=== PATIENT | male | born 1975 | race Caucasian/White ===

== ENCOUNTER 2018-11-06 11:04 | Emergency (ER) | payer OTHER ==
[2018-11-06] MEDS ORDERED: RIVAROXABAN 10 MG TABLET PO ONE (12:47)
[2018-11-06] MEDS ORDERED: IPRATROPIUM/ALBUTEROL 0.5-2.5 MG/3 ML AMPUL NEB ONE (12:47)
[2018-11-06] MEDS ORDERED: PREDNISONE 20 MG TABLET PO ONE (12:47)
[2018-11-06] MEDS ORDERED: ALBUTEROL SULFATE HFA (90 MCG/PUFF) 8 GM MDI (1 MDI/ER DISP) IH ONE (13:54)
--- NOTE | 2018-11-06 14:02 | ER Document Report ---
ED General - General Chief Complaint: Cough Stated Complaint: SORE THROAT/CHEST TIGHTNESS Time Seen by Provider: 11/06/18 12:24 Primary Care Provider: GRAEME BERNARD MD [ACTIVE STAFF] - Follow up as needed TRAVEL OUTSIDE OF THE [place] IN LAST 30 DAYS: No - HPI Patient complains to provider of: Cough sore throat Notes: Patient coming in for evaluation of cough and sore throat. Patient states has a history of PE in the past however recently was working on cleaning up some debris when he moved a box that was filled full of possible fungus mold or dust. Patient states since that time for sore throat and has had difficulty breathing and coughing. Patient states does have history of asthma does have a nebulizer however is currently out of any kind of albuterol. Patient denies any recent travel denies any swelling in his legs. Patient states he was on Xarelto however he ran out of his Xarelto in the last week or so. Patient states he has not followed up with her primary care physician since moving to the area here and does not have a data storage specialist states he does have a history of family members having blood clots in states that when he had his 2 major blood clots in the past the thought process was more likely a genetic issue. Patient states he does not feel like he has another DVT or PE states that most of his symptoms are more likely asthma related - Related Data Allergies/Adverse Reactions: No Known Allergies Allergy (Verified 11/06/18 11:07) Past Medical History - Social History Smoking Status: Former Smoker Frequency of alcohol use: Social Drug Abuse: None Family History: Reviewed & Not Pertinent Patient has suicidal ideation: No Patient has homicidal ideation: No Renal/ Medical History: Denies: Hx Peritoneal Dialysis Review of Systems - Review of Systems Constitutional: No symptoms reported EENT: No symptoms reported Cardiovascular: No symptoms reported Respiratory: Short of breath Gastrointestinal: No symptoms reported Genitourinary: No symptoms reported Male Genitourinary: No symptoms reported Musculoskeletal: No symptoms reported Skin: No symptoms reported Hematologic/Lymphatic: No symptoms reported Neurological/Psychological: No symptoms reported -: Yes All other systems reviewed and negative Physical Exam - Vital signs Vitals: Temp Pulse Resp BP Pulse Ox 99.0 F 56 L 20 137/88 H 98 11/06/18 11:19 11/06/18 11:19 11/06/18 11:19 11/06/18 11:19 11/06/18 11:19 Interpretation: Normal - General General appearance: Appears well, Alert - HEENT Head: Normocephalic, Atraumatic Eyes: Normal Pupils: PERRL - Respiratory Respiratory status: No respiratory distress Chest status: Nontender Breath sounds: Wheezing Chest palpation: Normal - Cardiovascular Rhythm: Regular Heart sounds: Normal auscultation Murmur: No - Abdominal Inspection: Normal Distension: No distension Bowel sounds: Normal Tenderness: Nontender Organomegaly: No organomegaly - Back Back: Normal, Nontender - Extremities General upper extremity: Normal inspection, Nontender, Normal color, Normal ROM, Normal temperature General lower extremity: Normal inspection, Nontender, Normal color, Normal ROM, Normal temperature, Normal weight bearing. No: Matty's sign - Neurological Neuro grossly intact: Yes Cognition: Normal Orientation: AAOx4 Delmy Coma Scale Eye Opening: Spontaneous [place] Coma Scale Verbal: Oriented [place] Coma Scale Motor: Obeys Commands Delmy Coma Scale Total: 15 Speech: Normal Motor strength normal: LUE, RUE, LLE, RLE Sensory: Normal - Psychological Associated symptoms: Normal affect, Normal mood - Skin Skin Temperature: Warm Skin Moisture: Dry Skin Color: Normal Course - Re-evaluation Re-evalutation: 11/06/18 18:35 Prescription for the patient Xarelto 20 mg daily was given to the patient. Patient was given a dose of his Xarelto here due to his history of extensive PE DVTs. Patient was also given a breathing treatment and prednisone. Patient will continue with this at home. Otherwise patient was discharged on follow-up primary care physician. - Vital Signs Vital signs: Temp Pulse Resp BP Pulse Ox 97.8 F 58 L 20 121/81 97 11/06/18 14:23 11/06/18 14:23 11/06/18 11:19 11/06/18 14:23 11/06/18 14:23 Discharge - Discharge Clinical Impression: Dyspnea Qualifiers: Dyspnea type: unspecified Qualified Code(s): R06.00 - Dyspnea, unspecified Condition: Good Disposition: HOME, SELF-CARE Instructions: Asthma ([facility]), Family Physicians / Practices Additional Instructions: Please take medications as prescribed use the inhaler and advised treatments 1 treatment every 2-4 hours as needed for shortness of breath please make sure to follow-up with your primary care doctors listed also listed our data storage specialist please continue with your Xarelto. Prescriptions: Albuterol Sulfate [Proventil 0.5% Neb 2.5 mg/0.5 ml Vial.neb] 2.5 mg NEB Q4 #30 vial.neb Prednisone [Deltasone] 60 mg PO DAILY #24 tablet Rivaroxaban [Xarelto] 20 mg PO DAILY #30 tablet Forms: Return to Work Referrals: GRAEME BERNARD MD [ACTIVE STAFF] - Follow up as needed
[2018-11-06 14:24] VITALS: BP 121/81
== END 2018-11-06 14:28 | disposition home or self-care (01) ==
LOC: ER 11:04
DX: I26.99 Other pulmonary embolism without acute cor pulmonale (principal); I82.409 Acute embolism and thrombosis of unspecified deep veins of unspecified lower extremity; T45.516A Underdosing of anticoagulants, initial encounter; Z91.128 Patient's intentional underdosing of medication regimen for other reason; Z91.14 Patient's other noncompliance with medication regimen; R06.02 Shortness of breath; R05 Cough; J02.9 Acute pharyngitis, unspecified; Z77.120 Contact with and (suspected) exposure to mold (toxic); Z87.891 Personal history of nicotine dependence
CPT/HCPCS: 94640; 99284; 87070; 87880; J7512; J3490; J7620

== ENCOUNTER 2019-01-01 20:39 | Emergency (ER) | payer SELFPAY ==
[2019-01-01 21:40] LABS: ABSOLUTE EOSINOPHILS # (AUTO) 0.5 10^3/uL (0.0-0.6); ABSOLUTE LYMPHOCYTES (AUTO) 1.3 10^3/uL (0.5-4.7); ABSOLUTE MONOCYTES (AUTO) 0.9 10^3/uL (0.1-1.4); BASOPHILS % (AUTO) 0.2 % (0-2); EOSINOPHILS % (AUTO) 6.8 % (0-6); HEMATOCRIT 47.7 % (37.9-51.0); HEMOGLOBIN 16.5 g/dL (13.5-17.0); MEAN CORPUSCULAR HEMOGLOBIN 31.5 pg (27.0-33.4); MEAN CORPUSCULAR HGB CONC 34.6 g/dL (32.0-36.0); MEAN CORPUSCULAR VOLUME 91 fl (80-97); MONOCYTES % (AUTO) 13.3 % (3-13); PLATELET COUNT 260 10^3/uL (150-450); RED BLOOD COUNT 5.25 10^6/uL (4.35-5.55); RED CELL DISTRIBUTION WIDTH 13.9 % (11.5-14.0); SEGMENTED NEUTROPHILS % (AUTO) 60.7 % (42-78); TOTAL CELLS COUNTED % (AUTO) 100 %; WHITE BLOOD COUNT 6.7 10^3/uL (4.0-10.5)
--- NOTE | 2019-01-01 21:49 | RADIOLOGY REPORT (SQ) ---
EXAM DESCRIPTION: XR CHEST 1 VIEW COMPLETED DATE/TME: 01/01/2019 20:46 CLINICAL HISTORY: 43 years, Male, difficulty breathing COMPARISON: None. NUMBER OF VIEWS: 1 TECHNIQUE: Portable chest LIMITATIONS: None. FINDINGS: Heart size normal. Lungs clear. No pneumothorax IMPRESSION: Negative chest copyright 2011 [employer]- All Rights Reserved
[2019-01-01 21:56] LABS: ALANINE AMINOTRANSFERASE 29 U/L (21-72); ALBUMIN 4.2 g/dL (3.5-5.0); ALKALINE PHOSPHATASE 59 U/L (38-126); ANION GAP 6 (5-19); ASPARTATE AMINO TRANSFERASE 19 U/L (17-59); BILIRUBIN,DIRECT 0.3 mg/dL (0.0-0.4); BILIRUBIN,TOTAL 0.5 mg/dL (0.2-1.3); BLOOD UREA NITROGEN 19 mg/dL (7-20); CALCIUM 9.7 mg/dL (8.4-10.2); CARBON DIOXIDE 28 mmol/L (22-30); CHLORIDE 104 mmol/L (98-107); CREATINE KINASE 51 U/L (55-170); GLUCOSE 93 mg/dL (75-110); POTASSIUM 4.6 mmol/L (3.6-5.0); SODIUM 137.6 mmol/L (137-145)
[2019-01-01 22:08] LABS: CREATINE KINASE MB 0.72 ng/mL (<4.55); NT PRO BNP 59 pg/mL (<125)
--- NOTE | 2019-01-01 22:08 | ER Document Report ---
ED General - General Chief Complaint: Shortness Of Breath Stated Complaint: SHORTNESS OF BREATH Time Seen by Provider: 01/01/19 22:08 Mode of Arrival: Ambulatory Information source: Patient Notes: HISTORY OF PRESENT ILLNESS: Patient is a 43-year-old male with a past medical history of asthma and prior pulmonary embolism from a DVT who presents with difficulty breathing for the past 4-5 days and improved with steroids and albuterol. Location: Chest Onset: 5 days ago Alleviation: None Provocation: Coughing Quality: Tightness, sharp Radiation: None Severity: Moderate Timing: Constant History of CAD: None Associated symptoms: No fevers or chills, positive for nonproductive cough chest tightness, no swelling of the extremities, no labored breathing REVIEW OF SYSTEMS: CONSTITUTIONAL : Denies fever or chills, no sweats. Denies recent illness. EENT: Denies eye, ear, throat, or mouth pain or symptoms. Denies nasal or sinus congestion. CARDIOVASCULAR: Positive for chest tightness and sharp pain. Denies swelling of the legs. RESPIRATORY: Positive for cough and congestion with mild difficulty breathing. Denies wheezing. GASTROINTESTINAL: Denies abdominal pain. Denies nausea, vomiting, or diarrhea. Denies constipation. GENITOURINARY: Denies difficulty urinating, painful urination, burning, frequency, or blood in urine. MUSCULOSKELETAL: Denies neck or back pain or joint pain or swelling. SKIN: Denies rash or skin lesions. HEMATOLOGIC : Denies easy bruising or bleeding. LYMPHATIC: Denies swollen, enlarged glands. NEUROLOGICAL: Denies altered mental status or loss of consciousness. Denies headache. Denies weakness or paralysis or loss of use of either side. Denies problems with gait or speech. Denies sensory or motor loss. PSYCHIATRIC: Denies anxiety or stress or depression. All other systems reviewed and negative. PHYSICAL EXAMINATION: GENERAL: Well-appearing, well-nourished and in no acute distress. HEAD: Atraumatic, normocephalic. No scalp deformity, depression, or crepitance. EYES: Pupils are 3 mm and equal/round/reactive to light, extraocular movements intact, sclera anicteric, conjunctiva are normal. ENT: Nares patent bilaterally, oropharynx. Moist mucous membranes. No tonsil hypertrophy. NECK: Normal range of motion, supple without lymphadenopathy. LUNGS: Breath sounds present, equal, and clear to auscultation bilaterally. No wheezes, rales, or rhonchi. HEART: Regular rate and rhythm without murmurs, rubs, or gallops. 2+ peripheral pulses. Normal capillary refill. ABDOMEN: Soft, nontender, nondistended. Normoactive bowel sounds. No guarding, no rebound. No masses appreciated. BACK: Normal contour, no midline tenderness. Rectal exam deferred. GENITAL/PELVIC: Deferred. EXTREMITIES: Normal range of motion, no pitting or edema. No cyanosis. NEUROLOGICAL: No focal neurological deficits. Moves all extremities spontane ously and on command. PSYCH: Normal mood, normal affect. No suicidal thoughts/ideations. No homoci oskar thoughts/ideations. No hallucinations. SKIN: Warm, dry, normal turgor, no rashes or lesions noted. ASSESSMENT AND PLAN: This patient is a 43-year-old male who presents with chest pain and cough with difficulty breathing that is most likely pneumonia versus viral syndrome versus costochondritis versus pulmonary embolism. 1. Will obtain labs, cardiac enzymes, CT angiogram of the chest, and reassess. 2. Will anticipate discharge home if workup is negative. TRAVEL OUTSIDE OF THE [place] IN LAST 30 DAYS: No - Related Data Allergies/Adverse Reactions: No Known Allergies Allergy (Verified 01/01/19 20:40) Past Medical History - General Information source: Patient - Social History Smoking Status: Former Smoker Chew tobacco use (# tins/day): No Frequency of alcohol use: None Drug Abuse: None Lives with: Family Family History: Reviewed & Not Pertinent Patient has suicidal ideation: No Patient has homicidal ideation: No - Past Medical History Cardiac Medical History: Reports: None Pulmonary Medical History: Reports: Hx Asthma, Other - History of pulmonary embolism EENT Medical History: Reports: None Neurological Medical History: Reports: None Endocrine Medical History: Reports: None Renal/ Medical History: Reports: None. Denies: Hx Peritoneal Dialysis Malignancy Medical History: Reports None GI Medical History: Reports: None Musculoskeletal Medical History: Reports None Skin Medical History: Reports None Psychiatric Medical History: Reports: None Traumatic Medical History: Reports: None Infectious Medical History: Reports: None Surgical Hx: Negative Past Surgical History: Reports: None - Immunizations Immunizations up to date: Yes Hx Diphtheria, Pertussis, Tetanus Vaccination: Yes History of Influenza Vaccine for 07/2017 - 11/2017 Season: Unknown Physical Exam - Vital signs Vitals: Temp Pulse Resp BP Pulse Ox 97.8 F 77 28 H 145/92 H 99 01/01/19 20:45 01/01/19 20:45 01/01/19 20:45 01/01/19 20:45 01/01/19 20:45 Course - Re-evaluation Re-evalutation: 01/02/19 03:55 CTA is negative for acute pulmonary embolism. Blood work, including cardiac enzymes, are negative. Patient also had Doppler ultrasounds of his legs that were negative for acute DVT. Patient will be discharged home with return precautions and follow-up as needed. Patient reports both understanding and agreeing with the plan. - Vital Signs Vital signs: Temp Pulse Resp BP Pulse Ox 97.8 F 77 28 H 145/92 H 99 01/01/19 20:45 01/01/19 20:45 01/01/19 20:45 01/01/19 20:45 01/01/19 20:45 - Laboratory Result Diagrams: 01/01/19 21:30 01/01/19 21:30 Laboratory results interpreted by me: 01/01/19 01/01/19 21:30 21:30 Monocytes % 13.3 H Eosinophils % 6.8 H Creatine Kinase 51 L - Diagnostic Test Radiology reviewed: Image reviewed, Reports reviewed - EKG Interpretation by Me EKG shows normal: Sinus rhythm Rate: Normal Rhythm: NSR [place]/QRS: No: Right axis deviation, Left axis deviation, RBBB, LBBB, IVCD, LAHB/LAFB, LPHB/LPFB, Bifasicular block Voltage: No: Increased voltage, Consistant with LVH, Decreased voltage, Throughout, Limb leads P Waves: No: DAMIEN, LAE, Absent, AV Dissociation, Other Heart block present: No: 1st Degree, Mobitz 1, Mobitz 2, CHB (3rd degree block) When compared to previous EKG there are: Previous EKG unavailable Discharge - Discharge Clinical Impression: Shortness of breath Condition: Good Disposition: HOME, SELF-CARE Instructions: Dyspnea, Nonspecific ([facility]) Additional Instructions: You have been evaluated in the Emergency Department for difficulty breathing. While here, you had CT scan of your chest that was normal, you also had normal blood work and it is now safe to be discharged home. Please follow-up with your primary physician as instructed in 2-3 days to be rechecked. Return to the Emergency Department if you experience worsening breathing, chest pain, or any other concerning symptoms. Prescriptions: Diclofenac Sodium 75 mg PO BID #30 tablet. Print Language: Estonian
[2019-01-01 22:09] LABS: TROPONIN I < 0.012 ng/mL
--- NOTE | 2019-01-01 22:41 | RADIOLOGY REPORT (SQ) ---
EXAM DESCRIPTION: US EXTREMITY VEINS UNILATERAL COMPLETED DATE/TME: 01/01/2019 21:19 CLINICAL HISTORY: 43 years, Male, left calf pain COMPARISON: None. TECHNIQUE: Transverse longitudinal sonographic images of the left lower extremity deep venous system LIMITATIONS: None. FINDINGS: Normal compression and augmentation throughout. No visible areas of thrombus formation. Doppler and spectral analysis with color flow shows normal waveforms IMPRESSION: Negative exam copyright 2010 [employer]- All Rights Reserved
[2019-01-01 22:49] LABS: APPEARANCE,URINE CLEAR; BILIRUBIN,URINE NEGATIVE (NEGATIVE); COLOR,URINE YELLOW; GLUCOSE, URINE NEGATIVE (NEGATIVE); KETONES,URINE NEGATIVE (NEGATIVE); LEUKOCYTE ESTERASE,URINE NEGATIVE (NEGATIVE); NITRITE,URINE NEGATIVE (NEGATIVE); PROTEIN,URINE NEGATIVE (NEGATIVE); URINE SPECIFIC GRAVITY 1.024; UROBILINOGEN,URINE NEGATIVE mg/dL (<2.0)
--- NOTE | 2019-01-02 00:30 | RADIOLOGY REPORT (SQ) ---
EXAM DESCRIPTION: CT CHEST ANGIOGRAPHY WITHOUT THEN WITH IV CONTRAST COMPLETED DATE/TME: 01/01/2019 23:23 CLINICAL HISTORY: 43 years, Male, Shortness of breath COMPARISON: None. TECHNIQUE: Axial images through the chest were performed after the administration of intravenous contrast using a pulmonary embolus protocol. MIPS were performed. This exam was performed according to our departmental dose-optimization program which includes use of Automated Exposure Control, adjustment of the mA and/or kV according to patient size and/or use of iterative reconstruction technique. FINDINGS: No acute pulmonary embolus. There are a few linear filling defects in the right upper, left lower and right lower lobe pulmonary arteries which may be sequelae from previous pulmonary emboli. These appear nonobstructive. Normal caliber aorta without dissection. No pericardial effusion. Cardiac chambers are normal in size. No pleural effusion. No focal lung consolidation. No pneumothorax. Patent central airway. Soft tissues are unremarkable. No acute osseous findings. No acute abnormality within the visualized upper abdomen. IMPRESSION: No pulmonary embolus.
[2019-01-02 04:12] VITALS: BP 138/86
--- NOTE | 2019-01-02 07:45 | EKG REPORT ---
SEVERITY:- BORDERLINE ECG - SINUS RHYTHM BORDERLINE T WAVE ABNORMALITIES : Confirmed by: Zane Merino MD 02-Jan-2019 07:44:26
== END 2019-01-02 04:11 | disposition home or self-care (01) ==
LOC: ER 20:39
DX: R06.02 Shortness of breath (principal); R07.9 Chest pain, unspecified; R05 Cough; R09.81 Nasal congestion; R06.9 Unspecified abnormalities of breathing; J45.909 Unspecified asthma, uncomplicated; Z86.711 Personal history of pulmonary embolism; Z86.718 Personal history of other venous thrombosis and embolism; Z87.891 Personal history of nicotine dependence
CPT/HCPCS: 36415; 71045; 71275; 80053; 81001; 82550; 82553; 83880; 84484; 85025; 93005; 93010; 93971; 99285

== ENCOUNTER 2019-02-27 09:52 | Emergency (ER) | payer SELFPAY ==
[2019-02-27] MEDS ORDERED: METHYLPREDNISOLONE INJ 125 MG/2 ML SDV IV ONE (10:10)
[2019-02-27] MEDS ORDERED: IPRATROPIUM/ALBUTEROL 0.5-2.5 MG/3 ML AMPUL NEB ONE (10:10)
[2019-02-27 10:30] LABS: ABSOLUTE EOSINOPHILS # (AUTO) 0.4 10^3/uL (0.0-0.6); ABSOLUTE LYMPHOCYTES (AUTO) 2.2 10^3/uL (0.5-4.7); ABSOLUTE MONOCYTES (AUTO) 0.9 10^3/uL (0.1-1.4); BASOPHILS % (AUTO) 0.2 % (0-2); HEMATOCRIT 54.6 % (37.9-51.0); HEMOGLOBIN 18.1 g/dL (13.5-17.0); LYMPHOCYTES % (AUTO) 29.7 % (13-45); MEAN CORPUSCULAR HEMOGLOBIN 30.5 pg (27.0-33.4); MEAN CORPUSCULAR HGB CONC 33.1 g/dL (32.0-36.0); MEAN CORPUSCULAR VOLUME 92 fl (80-97); MONOCYTES % (AUTO) 11.8 % (3-13); PLATELET COUNT 228 10^3/uL (150-450); RED BLOOD COUNT 5.92 10^6/uL (4.35-5.55); RED CELL DISTRIBUTION WIDTH 14.2 % (11.5-14.0); SEGMENTED NEUTROPHILS % (AUTO) 53.3 % (42-78); TOTAL CELLS COUNTED % (AUTO) 100 %; WHITE BLOOD COUNT 7.5 10^3/uL (4.0-10.5)
[2019-02-27] MEDS ORDERED: NORMAL SALINE 1000 ML 1,000 ML IV ONE ×2 (10:36→11:14)
[2019-02-27 10:40] LABS: INTERNATIONAL RATION (INR) 0.94; PROTHROMBIN TIME 13.1 SEC (11.4-15.4)
[2019-02-27 10:41] LABS: PARTIAL THROMBOPLASTIN TIME 26.6 SEC (23.5-35.8)
[2019-02-27 10:53] LABS: ALANINE AMINOTRANSFERASE 33 U/L (21-72); ALKALINE PHOSPHATASE 95 U/L (38-126); ASPARTATE AMINO TRANSFERASE 41 U/L (17-59); BILIRUBIN,DIRECT 0.4 mg/dL (0.0-0.4); BILIRUBIN,TOTAL 0.5 mg/dL (0.2-1.3); BLOOD UREA NITROGEN 23 mg/dL (7-20); CALCIUM 10.1 mg/dL (8.4-10.2); CARBON DIOXIDE 18 mmol/L (22-30); CHLORIDE 107 mmol/L (98-107); CREATINE KINASE 154 U/L (55-170); GLUCOSE 216 mg/dL (75-110); POTASSIUM 4.7 mmol/L (3.6-5.0); SODIUM 145.5 mmol/L (137-145); TOTAL PROTEIN 8.4 g/dL (6.3-8.2)
[2019-02-27 10:54] LABS: ANION GAP 19 (5-19)
--- NOTE | 2019-02-27 11:02 | RADIOLOGY REPORT (SQ) ---
EXAM DESCRIPTION: CHEST SINGLE VIEW COMPLETED DATE/TIME: 02/27/2019 10:39 am REASON FOR STUDY: dyspnea COMPARISON: 01/01/2019 EXAM PARAMETERS: NUMBER OF VIEWS: One view. TECHNIQUE: Single frontal radiographic view of the chest acquired. RADIATION DOSE: NA LIMITATIONS: None. FINDINGS: LUNGS AND PLEURA: No opacities, masses or pneumothorax. No pleural effusion. MEDIASTINUM AND HILAR STRUCTURES: No masses. Contour normal. HEART AND VASCULAR STRUCTURES: Heart normal in size. Normal vasculature. BONES: No acute findings. HARDWARE: None in the chest. OTHER: No other significant finding. IMPRESSION: NO ACUTE RADIOGRAPHIC FINDING IN THE CHEST. TECHNICAL DOCUMENTATION: JOB ID: [id number] [employer]- All Rights Reserved Reading location - IP/workstation name: [email or web address]
[2019-02-27 11:18] LABS: CREATINE KINASE MB 2.07 ng/mL (<4.55); NT PRO BNP 133 pg/mL (<125)
[2019-02-27 11:20] LABS: TROPONIN I < 0.012 ng/mL
--- NOTE | 2019-02-27 11:40 | RADIOLOGY REPORT (SQ) ---
EXAM DESCRIPTION: CTA CHEST COMPLETED DATE/TIME: 02/27/2019 11:19 am REASON FOR STUDY: PE hx, off meds COMPARISON: 01/01/2019 TECHNIQUE: CT scan of the chest performed using helical scanning technique with dynamic intravenous contrast injection. Images reviewed with lung, soft tissue and bone windows. Reconstructed coronal and sagittal MPR images reviewed. Additional 3 dimensional post-processing performed to develop Maximal Intensity Projection images (VT P). All images stored on PACS. All CT scanners at this facility use dose modulation, iterative reconstruction, and/or weight based d osing when appropriate to reduce radiation dose to as low as reasonably achievable (ALARA). [facility]: Dose Right [facility]: CareDose [facility]: Dose Right [facility]: Teradose 4D [facility]: [employer] CONTRAST TYPE AND DOSE: contrast/concentration: Isovue 350.00 mg/ml; Total Contrast Delivered: 89.0 ml; Total Saline Delivered: 90.0 ml Contrast bolus optimized for the pulmonary arteries. Not diagnostic for the aorta. RENAL FUNCTION: None required. The patient is less than 50 years old. RADIATION DOSE: CT Rad equipment meets quality standard of care and radiation dose reduction techniq ues were employed. CTDIvol: 29.4 - 46.3 mGy. DLP: 1136 mGy-cm. . LIMITATIONS: None. FINDINGS: LUNGS AND PLEURA: No masses, infiltrates, or pneumothorax. No pleural effusions or pleura l calcifications. AORTA AND GREAT VESSELS: No aneurysm. Contrast bolus not optimized for the aorta. HEART: Evidence of right heart strain with enlarged right atrium and ventricle and bowing of the inte rventricular septum. Reflux of contrast within the hepatic veins and IVC compatible with elevated ri ght heart pressures. No significant coronary artery calcifications. PULMONARY ARTERIES: Significant pulmonary embolus burden with central saddle pulmonary embolus and bi lateral lobar, segmental and subsegmental emboli most conspicuous within the bilateral lower lobes. HILAR AND MEDIASTINAL STRUCTURES: No identified masses or abnormal nodes. HARDWARE: None in the chest. UPPER ABDOMEN: No significant findings. Limited exam. THYROID AND OTHER SOFT TISSUES: No masses. No adenopathy. BONES: No acute or significant finding. 3D MIPS: Confirm above findings. OTHER: No other significant finding. IMPRESSION: 1. Significant pulmonary embolus burden with saddle pulmonary embolus and bilateral lob ar, segmental and subsegmental emboli, most conspicuous within the lower lobes. 2. Evidence of right heart strain with enlarged right heart and bowing of the interventricular septu m. COMMENT: Pertinent positive or negative findings of the imaging study reported as a CRITICAL EXAM kenney moulton KEL MORGAN at11:33 on 02/27/2019. Category of Critical Exam: Pulmonary embolus with evidence of right heart strain Quality ID # [id number]: Final reports with documentation of one or more dose reduction techniques (e.g., Au tomated exposure control, adjustment of the mA and/or kV according to patient size, use of iterative reconstruction technique) TECHNICAL DOCUMENTATION: JOB ID: [id number] [employer]- All Rights Reserved Reading location - IP/workstation name: [email or web address]-
[2019-02-27] MEDS ORDERED: ALTEPLASE INJ 100 MG VIAL IV ONE (11:42)
[2019-02-27] MEDS ORDERED: DEXTROSE 5%-WATER 250 ML with VASOPRESSIN 100 UNIT IV PRN ×2 (11:44)
[2019-02-27] MEDS ORDERED: DEXTROSE 5%-WATER 250 ML with NOREPINEPHRINE BITARTRATE 4 MG IV PRN ×2 (11:48)
[2019-02-27] MEDS ORDERED: ALTEPLASE INJ 100 MG VIAL ONE (11:49)
[2019-02-27] MEDS ORDERED: NOREPINEPHRINE BITARTRATE INJ/PF 4 MG/4 ML SDV IV ONE (12:01)
--- NOTE | 2019-02-27 12:17 | ER Document Report ---
ED General - General Chief Complaint: Shortness Of Breath Stated Complaint: DIFFICULTY BREATHING Time Seen by Provider: 02/27/19 10:09 TRAVEL OUTSIDE OF THE [place] IN LAST 30 DAYS: No - HPI Notes: Patient is a 43-year-old male presents to the emergency department for evaluation of dyspnea and a syncopal episode. He states it happened possibly 30 minutes ago. He became diaphoretic, developed chest tightness. He states he passed out but just leaned against the wall. He did not hit his head. No signi ficant time unconscious. The patient states he has a tightness in his chest. Minimal cough. He notes that he has a history of a pulmonary embolus. He was put on a novel anticoagulant 2 years ago. He states he stopped taking it presently 1 year ago secondary to his cost prohibitive brown. No fevers or chills. He does note that he had pain in his left calf for the last 3 days. - Related Data Allergies/Adverse Reactions: No Known Allergies Allergy (Verified 02/27/19 09:55) Past Medical History - General Information source: Patient - Social History Smoking Status: Current Every Day Smoker Chew tobacco use (# tins/day): No Frequency of alcohol use: Social Drug Abuse: Marijuana Family History: Reviewed & Not Pertinent Patient has suicidal ideation: No Patient has homicidal ideation: No - Past Medical History Cardiac Medical History: Reports: Hx Hypertension, Hx Pulmonary Embolism Pulmonary Medical History: Reports: Hx Asthma Renal/ Medical History: Denies: Hx Peritoneal Dialysis Past Surgical History: Reports: Hx Cardiac Catheterization, Hx Orthopedic Surgery - Immunizations Immunizations up to date: Yes Hx Diphtheria, Pertussis, Tetanus Vaccination: Yes Review of Systems - Review of Systems Constitutional: No symptoms reported EENT: No symptoms reported Cardiovascular: No symptoms reported, See HPI Respiratory: See HPI Gastrointestinal: No symptoms reported Genitourinary: No symptoms reported Musculoskeletal: No symptoms reported Skin: See HPI Neurological/Psychological: No symptoms reported Physical Exam - Vital signs Vitals: Pulse Ox 94 02/27/19 10:06 - Notes Notes: Diaphoretic 43-year-old male, moderate amount of distress. He is tachypneic, tachycardic. Head is nor cephalic and atraumatic. Pupils are equal, round, reactive to light. Heart is tachycardic with normal S1-S2. Lungs reveal scant expiratory wheezes, left greater than right. Abdomen soft, nontender, normal active bowel sounds. Skin is cool and diaphoretic. Extremities reveal no cyanosis or clubbing, no posterior calf tenderness. Patient is awake and alert, oriented x3. Moving all 470 spontaneously no focal neurological deficits noted. Course - Re-evaluation Re-evalutation: 02/27/19 12:14 Patient presents to the emergency department for evaluation. On arrival he is in a moderate amount of distress, tachypneic, tachycardic. Given his history, his tachycardia, and the EKG changes, I was highly concerned about the possibility of a pulmonary embolus. Override for waiting for creatinine was placed, patient was sent for CT angiogram of the chest. His EKG does show right heart strain. Laboratory investigations reveal an elevated creatinine, s ignificant dehydration with a bicarb of 18. He was given IV fluids. I received report from the radiologist at 1124 that the patient had a saddle pulmonary embolus, as well as a moderate to large clot burden in bilateral lower lobes. I did notify the patient as well as his family, and I immediately contacted [facility]. I wanted to speak to vascular/critical care to determine whether or not this patient was an appropriate TPA candidate. Patient, , and I went over the entire TPA checklist. He has no contraindications to TPA that they noted. His blood pressures remained in the 90s. I spoke with Dr. Maravilla, director of math at [facility]. She did recommend TPA full dose, as well as vaso pressin and Levophed. She recommended discontinuing IV fluids as he already has significant right heart strain. These were held. I went back into the room to notify the patient as well as his of findings and recommendations. It was noted to me by nursing that the patient only had one small gauge peripheral IV. Decision was made to proceed with central line placement. Secondary to his ta chypnea, tachycardia, and desire to not potentially compromise respiratory status, decision was made to place a right femoral line. Indications, contraindications, possible complications were explained in great detail. Questions were sought and answered. Consent was signed and placed on the chart. Right femoral line was placed without difficulty. Please see separate procedure note. Patient is started on the TPA. Currently pressors are being held. Trying to wean patient off of BiPAP. Current blood pressure is 105 systolic. Patient remains moderately tachycardic with a heart rate of 110. I have been notified that helicopter is in the ER for transfer to [place] at this time. - Vital Signs Vital signs: Temp Pulse Resp BP Pulse Ox 109 H 22 H 85/61 L 100 02/27/19 12:14 02/27/19 12:17 02/27/19 12:17 02/27/19 12:14 - Laboratory Result Diagrams: 02/27/19 10:10 02/27/19 10:10 Laboratory results interpreted by me: 02/27/19 02/27/19 02/27/19 10:10 10:10 10:10 RBC 5.92 H Hgb 18.1 H Hct 54.6 H RDW 14.2 H Sodium 145.5 H Carbon Dioxide 18 L BUN 23 H Creatinine 1.94 H Est GFR ( Amer) 46 L Est GFR (Non-Af Amer) 38 L Glucose 216 H NT-Pro-B Natriuret Pep 133 H Total Protein 8.4 H - Diagnostic Test Radiology reviewed: Reports reviewed Radiology results interpreted by me: 02/27/19 12:17 Chest X-Ray 02/27/19 10:09 IMPRESSION: NO ACUTE RADIOGRAPHIC FINDING IN THE CHEST. Chest/Abdomen CTA 02/27/19 10:10 IMPRESSION: 1. Significant pulmonary embolus burden with saddle pulmonary embolus and bilateral lobar, segmental and subsegmental emboli, most conspicuous within the lower lobes. 2. Evidence of right heart strain with enlarged right heart and bowing of the interventricular septum. - EKG Interpretation by Me Additional EKG results interpreted by me: 02/27/19 12:18 Sinus tachycardia with a rate of 117 bpm. Normal axis and intervals. New S wave in lead I, T wave inversions anteriorly, concerning for significant right heart strain with ischemic changes. Significant change compared to prior study. Procedures - Central Line Right Femoral Time completed: 12:05 Consent obtained: Yes Central line pre-insertion: Sterile PPE donned, Chloraprep applied Central line lumen type: Triple Anesthetic type: 1% Lidocaine mL's of anesthesia: 3 Ultrasound guided: No Line secured with sutures: Yes Central line post-insertion: Blood return from lumens, Sutured Number of attempts: 1 Complications: No Critical Care Note - Critical Care Note Total time excluding time spent on procedures (mins): 55 Discharge - Discharge Clinical Impression: Saddle pulmonary embolus, Right heart strain Condition: Stable Disposition: [facility] Admitting Provider: Dr. Maravilla Unit Admitted: ICU
[2019-02-27 13:31] VITALS: BP 97/67
--- NOTE | 2019-02-27 22:12 | EKG REPORT ---
SEVERITY:- OTHERWISE NORMAL ECG - SINUS TACHYCARDIA : Confirmed by: Trini Srivastava MD 27-Feb-2019 22:11:56
== END 2019-02-27 13:00 | disposition short-term general hospital (02) ==
LOC: ER 09:52
DX: I26.92 Saddle embolus of pulmonary artery without acute cor pulmonale (principal); I51.9 Heart disease, unspecified; R55 Syncope and collapse; M79.662 Pain in left lower leg; R06.82 Tachypnea, not elsewhere classified; R00.0 Tachycardia, unspecified; F17.200 Nicotine dependence, unspecified, uncomplicated; Z86.711 Personal history of pulmonary embolism
CPT/HCPCS: 93005; 94640; 99285; 96361; 96374; 96375; 36415; 87040; 82553; 82550; 85025; 85610; 85730; 80053; 84484; 83880; 71045; 71275; 93010; 94660; 36556; C1751; J2930; J2997; J7030; J7620

== ENCOUNTER → 2019-03-13 | Outpatient (CLI) | payer OTHER ==
[2019-03-13 16:48] LABS: ABSOLUTE EOSINOPHILS # (AUTO) 0.2 10^3/uL (0.0-0.6); ABSOLUTE LYMPHOCYTES (AUTO) 1.3 10^3/uL (0.5-4.7); ABSOLUTE MONOCYTES (AUTO) 0.4 10^3/uL (0.1-1.4); ABSOLUTE NEUT (AUTO) 3.7 10^3/uL (1.7-8.2); BASOPHILS % (AUTO) 0.6 % (0-2); HEMOGLOBIN 15.9 g/dL (13.5-17.0); INTERNATIONAL RATION (INR) 1.03; LYMPHOCYTES % (AUTO) 22.7 % (13-45); MEAN CORPUSCULAR HEMOGLOBIN 31.2 pg (27.0-33.4); MEAN CORPUSCULAR HGB CONC 34.5 g/dL (32.0-36.0); MEAN CORPUSCULAR VOLUME 91 fl (80-97); MONOCYTES % (AUTO) 6.4 % (3-13); PLATELET COUNT 271 10^3/uL (150-450); PROTHROMBIN TIME 14.1 SEC (11.4-15.4); RED BLOOD COUNT 5.08 10^6/uL (4.35-5.55); RED CELL DISTRIBUTION WIDTH 13.3 % (11.5-14.0); SEGMENTED NEUTROPHILS % (AUTO) 66.3 % (42-78); TOTAL CELLS COUNTED % (AUTO) 100 %; WHITE BLOOD COUNT 5.5 10^3/uL (4.0-10.5)
[2019-03-13 16:49] LABS: PARTIAL THROMBOPLASTIN TIME 28.1 SEC (23.5-35.8)
[2019-03-13 17:12] LABS: ALANINE AMINOTRANSFERASE 28 U/L (21-72); ALBUMIN 4.6 g/dL (3.5-5.0); ALKALINE PHOSPHATASE 63 U/L (38-126); ANION GAP 9 (5-19); ASPARTATE AMINO TRANSFERASE 20 U/L (17-59); BILIRUBIN,DIRECT 0.2 mg/dL (0.0-0.4); BILIRUBIN,TOTAL 0.6 mg/dL (0.2-1.3); BLOOD UREA NITROGEN 20 mg/dL (7-20); CALCIUM 10.2 mg/dL (8.4-10.2); CARBON DIOXIDE 29 mmol/L (22-30); CHLORIDE 102 mmol/L (98-107); CHOLESTEROL 205.59 mg/dL (0-200); GLUCOSE 135 mg/dL (75-110); SODIUM 140.1 mmol/L (137-145); TOTAL PROTEIN 7.2 g/dL (6.3-8.2); TRIGLYCERIDES 100 mg/dL (<150)
[2019-03-13 17:23] LABS: DIRECT LDL 149 mg/dL (<100)
[2019-03-13 17:42] LABS: CARCINOEMBRYONIC ANTIGEN 0.8 ng/mL (<3.0)
== END ==
LOC: CCC 16:27
DX: I26.99 Other pulmonary embolism without acute cor pulmonale (principal)
CPT/HCPCS: 36415; 80053; 80061; 82378; 84443; 85025; 85610; 85730

== ENCOUNTER 2019-06-29 10:49 | Emergency (ER) | payer OTHER ==
--- NOTE | 2019-06-29 12:24 | ER Document Report ---
HPI - HPI Patient complains to provider of: Skin rash to foot Time Seen by Provider: 06/29/19 12:20 Onset/Duration: Worse Pain Level: Denies Context: Patient complains of pruritic skin rash to bilateral feet for the past 3 days. Patient states that symptoms started after wearing boots without socks. Patient states that he does sweat frequently when he is wearing socks and shoes. Patient states he developed blisters that started to drain and has peeling between the web spacing of his toes. Patient denies any fever or history of diabetes. Associated Symptoms: Other - Skin rash to bilateral feet. denies: Fever Exacerbated by: Denies Relieved by: Denies Similar symptoms previously: No Recently seen / treated by doctor: No - ROS ROS below otherwise negative: Yes Systems Reviewed and Negative: Yes All other systems reviewed and negative - CONSTITUTIONAL Constitutional: DENIES: Fever, Chills - GASTROINTESTINAL Gastrointestinal: DENIES: Nausea - DERM Skin Color: Erythema Skin Problems: Rash, Blister Notes: Weeping Past Medical History - General Information source: Patient - Social History Smoking Status: Current Every Day Smoker Smoking Education Provided: Yes Frequency of alcohol use: Occasional Drug Abuse: None Occupation: [employer] Lives with: Family Family History: Reviewed & Not Pertinent Patient has suicidal ideation: No Patient has homicidal ideation: No - Past Medical History Cardiac Medical History: Reports: Hx DVT, Hx Hypertension, Hx Pulmonary Embolism Pulmonary Medical History: Reports: Hx Asthma Renal/ Medical History: Denies: Hx Peritoneal Dialysis Past Surgical History: Reports: Hx Cardiac Catheterization, Hx Orthopedic Surgery - Immunizations Immunizations up to date: Yes Hx Diphtheria, Pertussis, Tetanus Vaccination: Yes Vertical Provider Document - CONSTITUTIONAL Agree With Documented VS: Yes Exam Limitations: No Limitations General Appearance: WD/WN, No Apparent Distress - INFECTION CONTROL TRAVEL OUTSIDE OF THE [place] IN LAST 30 DAYS: No - HEENT HEENT: Atraumatic, Normocephalic - NECK Neck: Normal Inspection - RESPIRATORY Respiratory: No Respiratory Distress - CARDIOVASCULAR Pulses: Normal: Dorsalis pedis - MUSCULOSKELETAL/EXTREMETIES Musculoskeletal/Extremeties: MAEW, FROM, Tender - NEURO Level of Consciousness: Awake, Alert, Appropriate Motor/Sensory: No Motor Deficit - DERM Integumentary: Warm, Dry, Rash - Wet macerated skin between webspace of toes with peeling skin to bilateral feet Course - Re-evaluation Re-evalutation: 06/29/19 12:[address] welch, discussed presentation. Dr Welch advises topical treatment with antifungal medication at this time - Vital Signs Vital signs: Temp Pulse Resp BP Pulse Ox 98.0 F 67 18 127/77 H 97 06/29/19 10:53 06/29/19 10:53 06/29/19 10:53 06/29/19 10:53 06/29/19 10:53 Discharge - Discharge Clinical Impression: Tinea pedis Qualifiers: Laterality: bilateral Qualified Code(s): B35.3 - Tinea pedis Condition: Stable Disposition: HOME, SELF-CARE Instructions: Skin Fungus ([facility]) Additional Instructions: Return immediately for any new or worsening symptoms Followup with your primary care provider, call tomorrow to make a followup appointment Prescriptions: Ketoconazole [Nizoral] 1 applic TP DAILY #30 cream.gm. Forms: Smoking Cessation Education Referrals: [facility] [NO LOCAL MD] - Follow up as needed [facility] [Provider Group] - Follow up as needed
[2019-06-29 12:41] VITALS: BP 121/84
== END 2019-06-29 12:39 | disposition home or self-care (01) ==
LOC: ER 10:49
DX: B35.3 Tinea pedis (principal); F17.200 Nicotine dependence, unspecified, uncomplicated; I10 Essential (primary) hypertension; J45.909 Unspecified asthma, uncomplicated
CPT/HCPCS: 99283

== ENCOUNTER 2019-11-21 16:36 | Emergency (ER) | payer OTHER ==
[2019-11-21] MEDS ORDERED: METHYLPREDNISOLONE INJ 125 MG/2 ML SDV IV ONE (16:48)
[2019-11-21] MEDS ORDERED: IPRATROPIUM/ALBUTEROL 0.5-2.5 MG/3 ML AMPUL NEB ONE (16:48)
--- NOTE | 2019-11-21 16:49 | ER Document Report ---
ED Medical Screen (RME) - General Stated Complaint: SHORTNESS OF BREATH Time Seen by Provider: 11/21/19 16:48 TRAVEL OUTSIDE OF THE [place] IN LAST 30 DAYS: No - HPI Notes: 11/21/19 16:49 Patient is a 44-year-old male with a history of asthma and PEs (on Xarelto) presents complaining of nasal congestion/discharge, cough, shortness of breath, wheezing, chest tightness that began over the past 1 to 2 days. Patient states that he was exposed to a similar illness with his coworker recently. Patient states that he ran out of medicine for his nebulizer machine at home which is why he is here. Denies drug allergies. No fever, abdominal pain, nausea/vomiting. I have treated and performed a rapid initial assessment of this patient. A comprehensive ED assessment and evaluation of the patient, analysis of test results and completion of medical decision making process will be conducted by additional ED providers. PHYSICAL EXAMINATION: GENERAL: A&Ox4. Answers questions appropriately. Lungs: Wheezing throughout. No retractions. Patient is speaking in 2 word sentences. - Related Data Allergies/Adverse Reactions: No Known Allergies Allergy (Verified 06/29/19 12:13) Past Medical History - Past Medical History Cardiac Medical History: Reports: Hx DVT, Hx Hypertension, Hx Pulmonary Embolism Pulmonary Medical History: Reports: Hx Asthma Renal/ Medical History: Denies: Hx Peritoneal Dialysis Past Surgical History: Reports: Hx Cardiac Catheterization, Hx Orthopedic Surgery - Immunizations Immunizations up to date: Yes Hx Diphtheria, Pertussis, Tetanus Vaccination: Yes Physical Exam - Vital signs Vitals: Temp Pulse Resp BP Pulse Ox 98.4 F 114 H 36 H 151/86 H 100 11/21/19 16:38 11/21/19 16:38 11/21/19 16:38 11/21/19 16:38 11/21/19 16:38 Course - Vital Signs Vital signs: Temp Pulse Resp BP Pulse Ox 98.4 F 114 H 36 H 151/86 H 100 11/21/19 16:38 11/21/19 16:38 11/21/19 16:38 11/21/19 16:38 11/21/19 16:38
[2019-11-21 17:37] LABS: A TYPE INFLUENZA AG NEGATIVE (NEGATIVE); B INFLUENZA AG NEGATIVE (NEGATIVE)
--- NOTE | 2019-11-21 17:42 | ER Document Report ---
ED Respiratory Problem - General Chief Complaint: Shortness Of Breath Stated Complaint: SHORTNESS OF BREATH Time Seen by Provider: 11/21/19 17:28 Primary Care Provider: [facility] [Provider Group] - Follow up as needed [facility] [Provider Group] - Follow up as needed Mode of Arrival: Ambulatory Information source: Patient Notes: Patient presents complaining of cough congestion and chest tightness that started yesterday. Patient reports asthma exacerbation that started yesterday. Patient repeats recent exposure to a sick contact at work. Patient denies any fever. Patient reports a history of asthma that required admission and BiPAP in the past. Patient does take Xarelto for PE and previous DVT. Patient is insistent that he is not having any laboratory test performed and states that he will sign what ever form and he just wants to be treated for his asthma and get prescriptions to go home to knock this out. TRAVEL OUTSIDE OF THE [place] IN LAST 30 DAYS: No - HPI Patient complains to provider of: Asthma, Cough, Short of breath Onset: Yesterday Duration: Continuous Quality of pain: Other - Tightness Pain Level: 3 Context: DVT, Hx asthma, Smoker Associated symptoms: Chest pain/discomfort, Chills, Congestion, Cough, Wheezing. denies: Fever Similar symptoms previously: Yes Recently seen / treated by doctor: No - Related Data Allergies/Adverse Reactions: No Known Allergies Allergy (Verified 06/29/19 12:13) Past Medical History - General Information source: Patient - Social History Smoking Status: Current Every Day Smoker Frequency of alcohol use: None Drug Abuse: None Occupation: Remodeling Family History: Reviewed & Not Pertinent Patient has suicidal ideation: No Patient has homicidal ideation: No - Past Medical History Cardiac Medical History: Reports: Hx DVT, Hx Hypertension, Hx Pulmonary Embolism Pulmonary Medical History: Reports: Hx Asthma Renal/ Medical History: Denies: Hx Peritoneal Dialysis Past Surgical History: Reports: Hx Cardiac Catheterization, Hx Orthopedic Surgery - Immunizations Immunizations up to date: Yes Hx Diphtheria, Pertussis, Tetanus Vaccination: Yes Review of Systems - Review of Systems Constitutional: No symptoms reported. denies: Fever, Recent illness EENT: No symptoms reported Cardiovascular: Chest pain Respiratory: Cough, Short of breath, Wheezing Gastrointestinal: No symptoms reported. denies: Vomiting Genitourinary: No symptoms reported Male Genitourinary: No symptoms reported Musculoskeletal: No symptoms reported Skin: No symptoms reported Hematologic/Lymphatic: No symptoms reported Neurological/Psychological: No symptoms reported Physical Exam - Vital signs Vitals: Temp Pulse Resp BP Pulse Ox 98.4 F 114 H 36 H 151/86 H 100 11/21/19 16:38 11/21/19 16:38 11/21/19 16:38 11/21/19 16:38 11/21/19 16:38 - General General appearance: Alert In distress: Mild - HEENT Head: Normocephalic, Atraumatic Eyes: Normal Conjunctiva: Normal Nasal: Normal Mouth/Lips: Normal Neck: Normal - Respiratory Respiratory status: Labored, Tachypnea Chest status: Pain with cough Breath sounds: Nonproductive cough, Wheezing Chest palpation: Normal - Cardiovascular Rhythm: Tachycardia Heart sounds: S1 appreciated, S2 appreciated Murmur: No - Back Back: Normal, Nontender - Extremities General upper extremity: Normal inspection, Normal ROM General lower extremity: Normal inspection, Normal ROM - Neurological Neuro grossly intact: Yes Cognition: Normal Orientation: AAOx4 Delmy Coma Scale Eye Opening: Spontaneous Farner Coma Scale Verbal: Oriented Farner Coma Scale Motor: Obeys Commands Farner Coma Scale Total: 15 - Psychological Associated symptoms: Normal affect, Normal mood - Skin Skin Temperature: Warm Skin Moisture: Dry Skin Color: Normal Course - Re-evaluation Re-evalutation: 11/21/19 17:41 Patient is insistent that he is not having any test performed. Patient states he wants whatever steroid medicine will help resolve his symptoms the quickest. Patient advised that IV Solu-Medrol with nebulizers would be advised. Patient is agreeable to have a saline lock placed and be given Solu-Medrol. Patient is insistent that no labs be performed. Patient states that he does not want to have any testing. Patient states that he is insistent that this is not a PE and that he does not have a current DVT. Patient states that he just does not feel like pneumonia and he thinks that he only has an asthma flareup at this time. Provider discussed with patient that patient is obviously having labored respirations speaking in short 4 word sentences and that presents with findings that are worrisome for respiratory distress. Patient advised that it would be prudent to further evaluate for possible PE, pneumonia, other cardiopulmonary cause of his symptoms. Patient does acknowledge smoking with a known history of PE. Patient does report compliance with taking his Xarelto. Patient states t hat he is insistent that this does not feel like anything other than an asthma exacerbation and refuses any additional treatment. Patient states that he will sign what ever form necessary so that he does not have to have these tests performed. The patient has decided not to proceed with further recommended testing or treatment to determine the cause of her symptoms. The risk and alternatives to the recommendation were discussed the patient voiced understanding. The patient appears clinically to have the capacity to make this decision. At the time of this assessment there is no indication for involuntary commitment. The patient is alert, oriented, and able to express clearly their reasoning for not wanting to remain in the emergency department for further treatment. The patient is not clinically psychotic, or intoxicated. Differential or suspected diagnoses based on medical screening exam: Heart attack, pneumonia, PE, respiratory distress The patient is aware of the concerning diagnoses and acknowledges understanding of the reasons for the following recommendations: The following recommendations/services were offered and refused: labs, potential advanced imaging The following risks were explained: , permanent disability, loss of function Clinical impression: Patient is competent to make decisions regarding the medical that is being offered. 11/21/19 18:23 Patient continues tachypneic patient does have increased air movement after nebulizer treatment. Patient is agreeable with IV magnesium as well as additional nebulizer treatment at this time. 11/21/19 19:18 Patient continues tachypneic, patient continues to decline any additional testing at this time. Patient encouraged to return immediately if he changes his mind and would like to be treated or have additional testing performed to further evaluate his symptoms. Patient will be given a prescription for steroids nebulizer and inhaler to go home. - Vital Signs Vital signs: Temp Pulse Resp BP Pulse Ox 99.3 F 102 H 18 126/66 H 97 11/21/19 19:28 11/21/19 19:28 11/21/19 19:28 11/21/19 19:28 11/21/19 19:28 - Laboratory Laboratory results interpreted by me: Labs- Entire Visit 11/21/19 16:57 Influenza A (Rapid) NEGATIVE Influenza B (Rapid) NEGATIVE - Diagnostic Test Radiology reviewed: Reports reviewed Discharge - Discharge Clinical Impression: Asthma Qualifiers: Asthma severity: unspecified severity Asthma persistence: unspecified Asthma complication type: unspecified Qualified Code(s): J45.909 - Unspecified asthma, uncomplicated Dyspnea Qualifiers: Dyspnea type: unspecified Qualified Code(s): R06.00 - Dyspnea, unspecified Disposition: AGAINST MEDICAL ADVICE Instructions: Asthma ([facility]) Prescriptions: Prednisone [Deltasone 20 mg Tablet] 3 tab PO DAILY 5 Days #15 tablet Inhaler,Assist Device,Accesory [Optichamber] 1 each MC Q4 PRN #1 each PRN Reason: Albuterol Sulfate [Proair Hfa Inhalation Aerosol 8.5 gm Mdi] 2 puff IH Q4 PRN #1 mdi PRN Reason: Albuterol Sulfate [Ventolin 0.083% Neb 2.5 mg/3 ml Ampul] 1 vial NEB Q4 PRN #30 vial PRN Reason: Referrals: [facility] [Provider Group] - Follow up as needed [facility] [Provider Group] - Follow up as needed
--- NOTE | 2019-11-21 17:53 | RADIOLOGY REPORT (SQ) ---
EXAM DESCRIPTION: CHEST SINGLE VIEW COMPLETED DATE/TIME: 11/21/2019 4:12 pm REASON FOR STUDY: cough/wheeze COMPARISON: 02/27/2019 EXAM PARAMETERS: NUMBER OF VIEWS: One view. TECHNIQUE: Single frontal radiographic view of the chest acquired. RADIATION DOSE: NA LIMITATIONS: None. FINDINGS: LUNGS AND PLEURA: No opacities, masses or pneumothorax. No pleural effusion. MEDIASTINUM AND HILAR STRUCTURES: No masses. Contour normal. HEART AND VASCULAR STRUCTURES: Heart normal in size. Normal vasculature. BONES: No acute findings. HARDWARE: None in the chest. OTHER: No other significant finding. IMPRESSION: NO ACUTE RADIOGRAPHIC FINDING IN THE CHEST. TECHNICAL DOCUMENTATION: JOB ID: [id number] 2010 [facility]- All Rights Reserved Reading location - IP/workstation name: [email or web address]
[2019-11-21] MEDS ORDERED: ALBUTEROL SULFATE 0.083% NEB 2.5 MG/3 ML AMPUL NEB ONE (18:22)
[2019-11-21] MEDS ORDERED: MAGNESIUM SULFATE/D5W 1 GM/100 ML RTUPB IV ONE ×2 (18:23→19:23)
[2019-11-21 19:33] VITALS: BP 126/66
== END 2019-11-21 19:56 | disposition left against medical advice (07) ==
LOC: ER 16:36
DX: J45.909 Unspecified asthma, uncomplicated (principal); I26.99 Other pulmonary embolism without acute cor pulmonale; R05 Cough; R07.89 Other chest pain; R68.83 Chills (without fever); R06.02 Shortness of breath; R00.0 Tachycardia, unspecified; F17.200 Nicotine dependence, unspecified, uncomplicated; I10 Essential (primary) hypertension; Z86.718 Personal history of other venous thrombosis and embolism; Z79.01 Long term (current) use of anticoagulants; Z53.29 Procedure and treatment not carried out because of patient's decision for other reasons
CPT/HCPCS: 87804; 71045; J2930; J3475; J7620

== ENCOUNTER → 2020-03-24 | Outpatient (CLI) | payer OTHER ==
[2020-03-24 14:26] LABS: ABSOLUTE EOSINOPHILS # (AUTO) 0.2 10^3/uL (0.0-0.6); ABSOLUTE LYMPHOCYTES (AUTO) 1.1 10^3/uL (0.5-4.7); ABSOLUTE MONOCYTES (AUTO) 0.6 10^3/uL (0.1-1.4); ABSOLUTE NEUT (AUTO) 3.8 10^3/uL (1.7-8.2); BASOPHILS % (AUTO) 0.3 % (0-2); HEMOGLOBIN 17.1 g/dL (13.5-17.0); LYMPHOCYTES % (AUTO) 19.7 % (13-45); MEAN CORPUSCULAR HEMOGLOBIN 32.6 pg (27.0-33.4); MEAN CORPUSCULAR HGB CONC 35.5 g/dL (32.0-36.0); MEAN CORPUSCULAR VOLUME 92 fl (80-97); MONOCYTES % (AUTO) 10.3 % (3-13); PLATELET COUNT 229 10^3/uL (150-450); RED BLOOD COUNT 5.23 10^6/uL (4.35-5.55); RED CELL DISTRIBUTION WIDTH 13.6 % (11.5-14.0); SEGMENTED NEUTROPHILS % (AUTO) 65.7 % (42-78); TOTAL CELLS COUNTED % (AUTO) 100 %; WHITE BLOOD COUNT 5.8 10^3/uL (4.0-10.5)
[2020-03-24 14:37] LABS: ALBUMIN 4.8 g/dL (3.5-5.0); ALKALINE PHOSPHATASE 65 U/L (38-126); ANION GAP 11 (5-19); ASPARTATE AMINO TRANSFERASE 23 U/L (17-59); BILIRUBIN,TOTAL 0.5 mg/dL (0.2-1.3); BLOOD UREA NITROGEN 17 mg/dL (7-20); CALCIUM 9.2 mg/dL (8.4-10.2); CARBON DIOXIDE 25 mmol/L (22-30); CHLORIDE 103 mmol/L (98-107); GLUCOSE 105 mg/dL (75-110); TOTAL PROTEIN 7.4 g/dL (6.3-8.2)
== END ==
LOC: CCC 13:22
PROVIDERS: ATTEND Family Medicine
DX: Z00.00 Encounter for general adult medical examination without abnormal findings (principal); D68.59 Other primary thrombophilia
CPT/HCPCS: 36415; 80053; 81241; 83036; 85025

== ENCOUNTER 2020-03-28 12:00 | Emergency (ER) | payer OTHER ==
[2020-03-28] MEDS ORDERED: DIPH/PERTUSS(ACELL)/TETANUS VAC/PF 0.5 ML SYR (>=10YO) IM ONE (12:10)
[2020-03-28 12:19] VITALS: BP 160/101
--- NOTE | 2020-03-28 12:21 | ER Document Report ---
ED Medical Screen (RME) - General Chief Complaint: Finger Injury Stated Complaint: FINGER INJURY Time Seen by Provider: 03/28/20 12:05 Primary Care Provider: ANGELA BAKER [Primary Care Provider] - Follow up as needed Notes: Patient is a 45-year-old male who presents the emergency department with a chief complaint of left fourth finger pain. Patient states that he was working on building a deck and ended up getting a splinter stuck underneath his nail. Patient is right-hand dominant. He states that he is not up-to-date on his tetanus immunization. Exam: Splinter noted underneath left fourth digit nail. I have greeted and performed a rapid initial assessment of this patient. A comprehensive ED assessment and evaluation of the patient, analysis of test results and completion of medical decision making process will be conducted by an additional ED providers. TRAVEL OUTSIDE OF THE [place] IN LAST 30 DAYS: No - Related Data Allergies/Adverse Reactions: No Known Allergies Allergy (Verified 06/29/19 12:13) Past Medical History - Social History Chew tobacco use (# tins/day): No Frequency of alcohol use: None Drug Abuse: None - Past Medical History Cardiac Medical History: Reports: Hx DVT, Hx Hypertension, Hx Pulmonary Embolism Pulmonary Medical History: Reports: Hx Asthma Renal/ Medical History: Denies: Hx Peritoneal Dialysis Past Surgical History: Reports: Hx Cardiac Catheterization, Hx Orthopedic Surgery - Immunizations Immunizations up to date: Yes Hx Diphtheria, Pertussis, Tetanus Vaccination: Yes Physical Exam - Vital signs Vitals: Temp Pulse Resp BP Pulse Ox 98.5 F 97 18 160/101 H 94 03/28/20 12:03/28/20 12:03/28/20 12:06 03/28/20 12:06 03/28/20 12:06 Course - Vital Signs Vital signs: Temp Pulse Resp BP Pulse Ox 98.5 F 97 18 160/101 H 94 03/28/20 12:03/28/20 12:03/28/20 12:03/28/20 12:06 03/28/20 12:06 Doctor's Discharge - Discharge Referrals: ANGELA BAKER [Primary Care Provider] - Follow up as needed
[2020-03-28] MEDS ORDERED: LIDOCAINE 1% INJ-PF (10 MG/ML) 30 ML SDV INJ ONE (13:27)
== END 2020-03-28 14:36 | disposition left against medical advice (07) ==
LOC: ER 12:00
DX: S60.455A Superficial foreign body of left ring finger, initial encounter (principal); W45.8XXA Other foreign body or object entering through skin, initial encounter; Y93.H3 Activity, building and construction; J45.909 Unspecified asthma, uncomplicated; Z53.20 Procedure and treatment not carried out because of patient's decision for unspecified reasons
CPT/HCPCS: 99281; 90471; 90715; J3490